=== PATIENT | female | born 1940 | race Caucasian/White ===

== ENCOUNTER 2016-11-24 14:06 | Inpatient (IN) | payer OTHER ==
[~2016-11-24] VITALS: Ht 162.6 cm; Wt 59.6 kg
[~2016-11-24 14:06] MED LIST: ARICEPT10 MG PO; BENADRYL25 MG PO; CENTRUM SILVER1 EAC3 PO; CENTRUM SILVER1 EAC4 PO; CIPRO500 MG PO; DONEPEZIL HCL10 MG PO; FLUOXETINE HCL20 MG PO; FOSAMAX70 MG PO; HYDROXYZINE HCL10 MG PO; LEVAQUIN750 MG PO; LO-DOSE ASPIRIN81 M1 PO; METOPROLOL SUCC25 MG PO; OMEGA-3 EC SOF1 EAC1 PO; PRILOSEC20 MG PO; PROZAC20 MG PO; REMERON15 M2 PO; SYNTHROID75 MCG PO; TOPROL XL25 MG PO; XARELTO15 MG PO
[2016-11-24 14:22] LABS: HEMATOCRIT 43.1 % (36.0-46.0); MCH 31.1 PG (29.0-34.0); MCHC 32.9 G/DL (30.0-36.0); MCV 94.5 FL (83-99); MEAN PLAT.VOLUME 9.7 uM^3 (9.5-12.4); PLATELET COUNT 599 K/uL (156-360); RBC DIS.WIDTH-CV 13.3 % (11.8-14.6); RBC DIS.WIDTH-SD 46.2 % (39-53); RED BLOOD COUNT 4.56 M/uL (3.80-5.20); WHITE BLOOD COUNT 10.5 K/uL (4.1-10.2)
[2016-11-24 14:32] LABS: CHLORIDE 94 mEq/L (99-109); POTASSIUM 3.7 mEq/L (3.7-5.4); SODIUM 134 mEq/L (136-147)
[2016-11-24 14:35] LABS: GLUCOSE 147 mg/dL (70-99)
[2016-11-24 14:36] LABS: ANION GAP 13 MEQ/L (2-14); TOTAL BILIRUBIN 1.4 mg/dL (0.0-1.0)
[2016-11-24 14:38] LABS: ALKALINE PHOSPHATASE 837 IU/L (3-129); GFR ESTIMATE (CALCULATED) 33 mL/min/
[2016-11-24 14:39] LABS: UREA NITROGEN (BUN) 24 mg/dL (9-23)
[2016-11-24 14:58] LABS: LIPASE 59 U/L (1.0-51.0)
[2016-11-24 16:39] LABS: ADD MIUA? YES; BILIRUBIN NEGATIVE; BLOOD NEGATIVE; COLOR YELLOW ((YELLOW)); GLUCOSE (STRIP) NEGATIVE; KETONES NEGATIVE; LEUKOCYTES LARGE; NITRITE NEGATIVE; PROTEIN (STRIP) 30; SPECIFIC GRAVITY 1.041 (1.000-1.030)
[2016-11-24 16:49] LABS: BACTERIA RARE /HPF; CALCIUM OXALATE CRYSTALS 1+ /HPF; EPITHELIAL CELLS 1+ /HPF; MUCUS NONE SEEN /LPF; UCUL ADDED? YES; WHITE BLOOD CELLS TNTC /HPF (0-5)
[2016-11-24] MEDS ORDERED: SERTRALINE HCL50 MG PO (19:10)
[2016-11-24 22:32] VITALS: BP 155/80
[2016-11-25 02:22] LABS: INTER. NORMALIZED RATIO 1.1; PROTHROMBIN TIME 11.6 (9.2-11.2); PTT 31.5 (25-32)
[2016-11-25 05:15] VITALS: BP 141/83
[2016-11-25 07:18] VITALS: BP 131/95
[2016-11-25 11:12] LABS: BODY FLUID WBC'S 225 /MM^3 (0-500)
[2016-11-25 11:13] LABS: TYPE OF FLUID PARACENTESIS
[2016-11-25 11:52] LABS: BODY FLUID EOSINOPHILS 0 % (0-25); BODY FLUID RBC'S < 1000 /MM^3 (0-100); MONONUCLEAR WBC'S 73 %; POLYNUCLEAR WBC'S 27 % (0-25)
[2016-11-25 12:20] VITALS: BP 146/70
[2016-11-25 15:08] VITALS: BP 113/64
[2016-11-25 17:22] VITALS: BP 133/68
[2016-11-25 20:00] VITALS: BP 153/70
[2016-11-26] VITALS (7 sets, daily range): BP systolic 123–146; BP diastolic 70–80
[2016-11-26 07:05] LABS: EOSINOPHIL (%) 0.3 % (0-5); HEMATOCRIT 42.4 % (36.0-46.0); IMMATURE GRANULOCYTE (%) 0.5 % (0.0-0.7); IMMATURE GRANULOCYTE COUNT 0.1 K/uL; INSTRUMENT ABS NEUTROPHIL CT 9.5 K/uL; LYMPHOCYTE COUNT 0.7 K/uL (1.0-2.8); MCH 30.9 PG (29.0-34.0); MCHC 32.3 G/DL (30.0-36.0); MCV 95.5 FL (83-99); MEAN PLAT.VOLUME 11.2 uM^3 (9.5-12.4); MONOCYTE COUNT 0.9 K/uL (0-0.8); NEUTROPHIL (%) 84.9 % (45-76); NEUTROPHIL COUNT 9.5 K/uL (1.8-6.4); PLATELET COUNT 523 K/uL (156-360); RBC DIS.WIDTH-CV 13.4 % (11.8-14.6); RBC DIS.WIDTH-SD 47.6 % (39-53); RED BLOOD COUNT 4.44 M/uL (3.80-5.20); WHITE BLOOD COUNT 11.2 K/uL (4.1-10.2)
[2016-11-26 07:31] LABS: ALKALINE PHOSPHATASE 765 IU/L (3-129); ANION GAP 11 MEQ/L (2-14); CHLORIDE 99 MEQ/L (99-109); GFR ESTIMATE (CALCULATED) 39 mL/min/; GLUCOSE 141 mg/dL (70-99); POTASSIUM 3.8 MEQ/L (3.7-5.4); SAMPLE HEMOLYSIS CHECK 0; SAMPLE ICTERIC CHECK 0; SAMPLE LIPEMIA CHECK 0; SODIUM 136 MEQ/L (136-147); UREA NITROGEN (BUN) 21 mg/dL (9-23)
[2016-11-26 09:53] LABS: C DIFF TOXIN NEGATIVE (NEGATIVE)
[2016-11-26 09:55] LABS: PROBE CHECK PASS; SPECIMEN PROCESSING CONTROL PASS
[2016-11-27 04:02] VITALS: BP 136/77
[2016-11-27 08:30] VITALS: BP 122/79
[2016-11-27 08:49] LABS: HEMATOCRIT 41.8 % (36.0-46.0); MCH 31.4 PG (29.0-34.0); MCHC 32.8 G/DL (30.0-36.0); MCV 95.7 FL (83-99); PLATELET COUNT 467 K/uL (156-360); RBC DIS.WIDTH-CV 13.2 % (11.8-14.6); RBC DIS.WIDTH-SD 46.6 % (39-53); RED BLOOD COUNT 4.37 M/uL (3.80-5.20); WHITE BLOOD COUNT 8.7 K/uL (4.1-10.2)
[2016-11-27 09:12] LABS: ANION GAP 8 MEQ/L (2-14); CHLORIDE 97 MEQ/L (99-109); GFR ESTIMATE (CALCULATED) 39 mL/min/; GLUCOSE 141 mg/dL (70-99); POTASSIUM 3.6 MEQ/L (3.7-5.4); SAMPLE HEMOLYSIS CHECK 0; SAMPLE ICTERIC CHECK 0; SAMPLE LIPEMIA CHECK 0; SODIUM 133 MEQ/L (136-147); UREA NITROGEN (BUN) 21 mg/dL (9-23)
[2016-11-27 11:45] VITALS: BP 124/78
[2016-11-27 16:41] VITALS: BP 124/76
[2016-11-27 20:19] VITALS: BP 120/69
[2016-11-28 04:05] VITALS: BP 125/73
[2016-11-28 06:43] LABS: MCH 31.1 PG (29.0-34.0); MCHC 32.3 G/DL (30.0-36.0); MCV 96.3 FL (83-99); MEAN PLAT.VOLUME 11.7 uM^3 (9.5-12.4); PLATELET COUNT 464 K/uL (156-360); RBC DIS.WIDTH-CV 13.3 % (11.8-14.6); RBC DIS.WIDTH-SD 47.5 % (39-53); RED BLOOD COUNT 4.05 M/uL (3.80-5.20); WHITE BLOOD COUNT 9.4 K/uL (4.1-10.2)
[2016-11-28 07:33] LABS: ANION GAP 9 MEQ/L (2-14); CHLORIDE 96 MEQ/L (99-109); GFR ESTIMATE (CALCULATED) 39 mL/min/; GLUCOSE 134 mg/dL (70-99); POTASSIUM 3.7 MEQ/L (3.7-5.4); SAMPLE HEMOLYSIS CHECK 0; SAMPLE ICTERIC CHECK 0; SAMPLE LIPEMIA CHECK 0; SODIUM 132 MEQ/L (136-147); UREA NITROGEN (BUN) 21 mg/dL (9-23)
[2016-11-28 07:42] VITALS: BP 124/76
[2016-11-28 11:38] VITALS: BP 126/74
[2016-11-28 16:58] VITALS: BP 121/74
== END 2016-11-28 18:17 | disposition hospice, home (50) | DRG 689 ==
LOC: EME 14:06 → 5WEST 21:26 → EDOF 21:26 → 5WEST 22:30 → 5SOUTH 11-25 13:12 → 5WEST 11-25 13:12 → 5SOUTH 11-25 16:48
PROVIDERS: Hospitalist; Internal Medicine; Physician Assistant Medical
PROC: 0W9G3ZZ Drainage of Peritoneal Cavity, Percutaneous Approach (ICD-10-PCS; principal; 2016-11-25)
DX: N30.00 Acute cystitis without hematuria (principal); K72.00 Acute and subacute hepatic failure without coma; N13.30 Unspecified hydronephrosis; J90 Pleural effusion, not elsewhere classified; N13.4 Hydroureter; F03.90 Unspecified dementia, unspecified severity, without behavioral disturbance, psychotic disturbance, mood disturbance, and anxiety; N17.9 Acute kidney failure, unspecified; I12.9 Hypertensive chronic kidney disease with stage 1 through stage 4 chronic kidney disease, or unspecified chronic kidney disease; N18.3 Chronic kidney disease, stage 3 (moderate); R18.8 Other ascites; N28.1 Cyst of kidney, acquired; K76.6 Portal hypertension; E03.9 Hypothyroidism, unspecified; C24.0 Malignant neoplasm of extrahepatic bile duct; F41.9 Anxiety disorder, unspecified; I10 Essential (primary) hypertension; F32.9 Major depressive disorder, single episode, unspecified; R41.3 Other amnesia; Z51.5 Encounter for palliative care; R74.8 Abnormal levels of other serum enzymes; K74.60 Unspecified cirrhosis of liver; D49.0 Neoplasm of unspecified behavior of digestive system; R62.7 Adult failure to thrive; B96.20 Unspecified Escherichia coli [E. coli] as the cause of diseases classified elsewhere; Z85.3 Personal history of malignant neoplasm of breast; Z86.73 Personal history of transient ischemic attack (TIA), and cerebral infarction without residual deficits
CPT/HCPCS: 74177; 76705; 80048; 80053; 81003; 82040; 82140; 83690; 84155; 85025; 85027; 85610; 85730; 87070; 87077; 87086; 87186; 87205; 87493; 89051; 99281; 99285; G0378; J0696; J1644; J2405; J3480; J7030; J7040; J7050

== ENCOUNTER → 2016-12-30 | Outpatient (CLI) | payer OTHER ==
[~2016-12-30] MED LIST changes: +SERTRALINE HCL50 MG PO
== END | disposition home or self-care (01) ==
LOC: RAD 07:50
PROC: 0WJG3ZZ Inspection of Peritoneal Cavity, Percutaneous Approach (ICD-10-PCS; principal; 2016-12-30)
DX: J90 Pleural effusion, not elsewhere classified (principal)
CPT/HCPCS: 76705